=== PATIENT | female | born 1940 | race Caucasian/White ===

== ENCOUNTER → 2018-06-05 | Outpatient (CLI) | payer MEDICARE ==
[~2018-06-05] MED LIST: ATEN50TA PO; GABA-529 PO; HYDR12.530 PO; REGADENOSON 0.4 MG/5 ML PF SYG IVP SCH; ROPI4TAB6 PO
== END | disposition home or self-care (01) ==
LOC: SHCH 11:10
PROVIDERS: ATTEND Internal Medicine Cardiovascular Disease
DX: R94.31 Abnormal electrocardiogram [ECG] [EKG] (principal); R07.9 Chest pain, unspecified; R06.09 Other forms of dyspnea
CPT/HCPCS: 78452; 93017; 96374; A9500 ×2

== ENCOUNTER → 2018-06-14 | Outpatient (CLI) | payer MEDICARE ==
[~2018-06-14] MED LIST changes: -REGADENOSON 0.4 MG/5 ML PF SYG IVP SCH
== END | disposition home or self-care (01) ==
LOC: SHCH 15:00
PROVIDERS: ATTEND Internal Medicine Cardiovascular Disease
DX: R09.89 Other specified symptoms and signs involving the circulatory and respiratory systems (principal)
CPT/HCPCS: 93880

== ENCOUNTER 2018-06-27 05:51 | Day surgery (SDC) | payer MEDICARE ==
[2018-06-25 14:52] VITALS: BP 198/70
[2018-06-25 15:00] LABS: BASOPHILS % (AUTO) 0.9 % (0.0-5.0); EOSINOPHILS % (AUTO) 1.3 % (0.0-8.0); HEMATOCRIT 42.5 % (36-48); MEAN CORPUSCULAR HEMOGLOBIN 30.2 pg (27.0-33.0); MEAN CORPUSCULAR HGB CONC 33.4 g/dL (32.0-36.0); MEAN CORPUSCULAR VOLUME 90.4 fL (79-99); MONOCYTES % (AUTO) 8.8 % (3.0-13.0); PLATELET COUNT (AUTO) 303 K/uL (130-400); RED CELL DISTRIBUTION WIDTH 13.6 % (11.0-15.5); WHITE BLOOD COUNT (AUTO) 7.7 K/uL (4.8-10.8)
[2018-06-25 15:01] LABS: APPEARANCE,URINE Clear (CLEAR); BILIRUBIN,URINE Negative (NEGATIVE); COLOR,URINE Yellow (YELLOW); GLUCOSE, URINE (UA) Negative (NEGATIVE); KETONES,URINE Negative (NEGATIVE); LEUKOCYTE ESTERASE ,URINE Trace (NEGATIVE); NITRATE,URINE Negative (NEGATIVE); OCCULT BLOOD,URINE Negative (NEGATIVE); PROTEIN,URINE Negative (NEGATIVE); UROBILINOGEN,URINE 0.2 mg/dL (0.2-1.0)
[2018-06-25 15:09] LABS: CREATININE 0.7 mg/dL (0.5-1.5); POTASSIUM 4.4 mmol/L (3.5-5.1)
[2018-06-25 15:10] LABS: BACTERIA,URINE Few /HPF (None Seen); RBC,URINE None Seen /HPF (0-1)
[2018-06-25 15:11] LABS: INR 0.96 (0.85-1.15); PARTIAL THROMBOPLASTIN TIME 28.7 SEC (26.3-35.5); PROTHROMBIN TIME 10.1 SEC (9.6-11.6)
[~2018-06-27] VITALS: Ht 152.4 cm; Wt 77.1 kg
[2018-06-27] VITALS (10 sets, daily range): BP systolic 133–176; BP diastolic 53–111
[~2018-06-27 05:51] MED LIST changes: +ALEN70TA47 PO; +AMLO5TAB7 PO; -GABA-529 PO; -HYDR12.530 PO; +LEVO175T9 PO; +NITR0.4T50 SL; +SODIUM CHLORIDE 0.9% 500ML 500 ML IV SCH; +TRAZ-187 PO
[2018-06-27] MEDS ORDERED: ALPRAZOLAM 0.5 MG TABLET ONE (06:38)
[2018-06-27] MEDS ORDERED: BIVALIRUDIN 250 MG/VIAL IV ONE (07:12)
[2018-06-27] MEDS ORDERED: IOHEXOL 350 MG/ML 100ML INFUS..BTL IV ONE (07:12)
[2018-06-27] MEDS ORDERED: IOHEXOL-350 50ML VIAL IV ONE (07:12)
[2018-06-27] MEDS ORDERED: NITROGLYCERIN 5 MG/ML 10 ML VIAL IV ONE (07:12)
[2018-06-27] MEDS ORDERED: LIDOCAINE HCL 2% 20ML ONE (07:12)
[2018-06-27] MEDS ORDERED: SODIUM CHLORIDE 0.9% 1000ML 1,000 ML IV ONE (07:14)
[2018-06-27] MEDS ORDERED: ALPRAZOLAM 0.5 MG TABLET PO SCH (07:30)
[2018-06-27] MEDS ORDERED: MIDAZOLAM HCL 1 MG/ML 2ML VIAL ONE (07:34)
[2018-06-27] MEDS ORDERED: FENTANYL CITRATE PF 50 MCG/1 ML 2ML VIAL ONE (07:35)
[2018-06-27] MEDS ORDERED: LABETALOL HCL 5 MG/ML 20ML VIAL IV ONE (08:08)
[2018-06-27] MEDS ORDERED: SODIUM CHLORIDE 0.9% 1000ML 1,000 ML IV SCH (08:13)
[2018-06-27] MEDS ORDERED: METOPROLOL TARTRATE 1 MG/ML 5ML VIAL IV PRN (08:15)
[2018-06-27] MEDS ORDERED: DEXTROSE 50%-WATER 50 ML DISP.SYRIN IV PRN (08:15)
[2018-06-27] MEDS ORDERED: HYDRALAZINE HCL 20 MG/ML VIAL IV PRN (08:15)
[2018-06-27] MEDS ORDERED: GLUCAGON 1MG KIT 1 MG ML IM PRN (08:15)
== END 2018-06-27 12:40 | disposition home or self-care (01) ==
LOC: DAH 05:51
PROVIDERS: ATTEND Internal Medicine Cardiovascular Disease
DX: I25.118 Atherosclerotic heart disease of native coronary artery with other forms of angina pectoris (principal); I11.0 Hypertensive heart disease with heart failure; I50.32 Chronic diastolic (congestive) heart failure; Z68.32 Body mass index [BMI] 32.0-32.9, adult; Z79.899 Other long term (current) drug therapy; E78.00 Pure hypercholesterolemia, unspecified; M19.90 Unspecified osteoarthritis, unspecified site; G89.4 Chronic pain syndrome; E03.9 Hypothyroidism, unspecified; E66.01 Morbid (severe) obesity due to excess calories; G25.81 Restless legs syndrome; Z98.890 Other specified postprocedural states; I73.9 Peripheral vascular disease, unspecified; R55 Syncope and collapse; Z88.8 Allergy status to other drugs, medicaments and biological substances; Z88.0 Allergy status to penicillin
CPT/HCPCS: 36415; 80048; 81001; 81003; 85025; 85610; 85730; 93458; A4606; C1894 ×2; J0360; J1644; J2250; J3010; J3490 ×3; J7030; Q9965; Q9967 ×2; 99156; 99157; J0583

== ENCOUNTER 2018-11-01 14:03 | Emergency (ER) | payer MEDICARE ==
[~2018-11-01 14:03] MED LIST changes: +ALEN70TA10 PO; -ALEN70TA47 PO; -AMLO5TAB7 PO; +AMLO5TAB9 PO; -SODIUM CHLORIDE 0.9% 500ML 500 ML IV SCH
[2018-11-01 14:57] LABS: BASOPHILS % (AUTO) 0.5 % (0.0-5.0); HEMATOCRIT 47.6 % (36-48); LYMPHOCYTES % (AUTO) 7.4 % (21.0-51.0); MEAN CORPUSCULAR HEMOGLOBIN 29.2 pg (27.0-33.0); MEAN CORPUSCULAR HGB CONC 33.3 g/dL (32.0-36.0); MEAN CORPUSCULAR VOLUME 87.7 fL (79-99); MONOCYTES % (AUTO) 7.5 % (3.0-13.0); NEUTROPHILS % (AUTO) 83.6 % (40.0-77.0); PLATELET COUNT (AUTO) 283 K/uL (130-400); RED BLOOD CELL COUNT(AUTO) 5.43 MIL/uL (4.00-5.50); RED CELL DISTRIBUTION WIDTH 14.9 % (11.0-15.5); WHITE BLOOD COUNT (AUTO) 8.5 K/uL (4.8-10.8)
[2018-11-01 15:09] LABS: CREATININE 0.7 mg/dL (0.5-1.5); POTASSIUM 4.1 mmol/L (3.5-5.1)
[2018-11-01 15:13] LABS: INR 0.97 (0.85-1.15); PARTIAL THROMBOPLASTIN TIME 30.3 SEC (26.3-35.5); PROTHROMBIN TIME 10.2 SEC (9.6-11.6)
[2018-11-01 15:14] LABS: ALBUMIN 3.5 g/dL (3.5-5.0); BILIRUBIN,TOTAL 0.2 mg/dL (0.2-1.0); TOTAL PROTEIN, SERUM 7.9 g/dL (6.0-8.3)
[2018-11-01] MEDS ORDERED: METHYLPREDNISOLONE SOD SUCC 125MG/2ML VIAL ONE (15:20)
[2018-11-01] MEDS ORDERED: VALACYCLOVIR HCL 500 MG TABLET PO SCH (15:45)
== END 2018-11-01 17:07 | disposition home or self-care (01) ==
LOC: EDH 14:03
DX: B02.9 Zoster without complications (principal); M54.5 Low back pain; M25.561 Pain in right knee; I25.10 Atherosclerotic heart disease of native coronary artery without angina pectoris; I10 Essential (primary) hypertension; E07.9 Disorder of thyroid, unspecified; Z90.49 Acquired absence of other specified parts of digestive tract; Z88.0 Allergy status to penicillin; Z88.6 Allergy status to analgesic agent; W18.39XA Other fall on same level, initial encounter; Y93.89 Activity, other specified; Y92.89 Other specified places as the place of occurrence of the external cause; Y99.8 Other external cause status
CPT/HCPCS: 36415; 72131; 73562; 80053; 82150; 82550; 83690; 85025; 85610; 85730; 93005; 96372; 99284; J2930

== ENCOUNTER 2018-11-21 19:49 | Inpatient (IN) | payer MEDICARE ==
[~2018-11-21] VITALS: Ht 152.4 cm; Wt 75.7 kg
[2018-11-21 20:52] LABS: BASOPHILS % (AUTO) 1.1 % (0.0-5.0); EOSINOPHILS % (AUTO) 3.3 % (0.0-8.0); HEMATOCRIT 42.7 % (36-48); LYMPHOCYTES % (AUTO) 18.8 % (21.0-51.0); MEAN CORPUSCULAR HGB CONC 34.4 g/dL (32.0-36.0); MEAN CORPUSCULAR VOLUME 87.4 fL (79-99); MONOCYTES % (AUTO) 9.5 % (3.0-13.0); NEUTROPHILS % (AUTO) 67.3 % (40.0-77.0); NUCLEATED RED BLOOD CELLS 0.1 % (0.0-0.19); PLATELET COUNT (AUTO) 199 K/uL (130-400); RED BLOOD CELL COUNT(AUTO) 4.89 MIL/uL (4.00-5.50); RED CELL DISTRIBUTION WIDTH 15.4 % (11.0-15.5); WHITE BLOOD COUNT (AUTO) 9.8 K/uL (4.8-10.8)
[2018-11-21 21:00] LABS: CREATININE 0.7 mg/dL (0.5-1.5)
[2018-11-21] MEDS ORDERED: MORPHINE SULFATE 2 MG/ML 1ML SYG ONE (21:00)
[2018-11-21] MEDS ORDERED: ONDANSETRON HCL 4 MG/2 ML VIAL ONE (21:00)
[2018-11-21 21:01] LABS: INR 0.9 (0.85-1.15); PARTIAL THROMBOPLASTIN TIME 29.4 SEC (26.3-35.5); PROTHROMBIN TIME 9.5 SEC (9.6-11.6)
[2018-11-21 21:07] LABS: BILIRUBIN,TOTAL 0.3 mg/dL (0.2-1.0)
[2018-11-21 21:57] LABS: APPEARANCE,URINE Clear (CLEAR); BILIRUBIN,URINE Negative (NEGATIVE); COLOR,URINE Yellow (YELLOW); GLUCOSE, URINE (UA) Negative (NEGATIVE); KETONES,URINE 15 mg/dL (NEGATIVE); LEUKOCYTE ESTERASE ,URINE Large (NEGATIVE); NITRATE,URINE Negative (NEGATIVE); OCCULT BLOOD,URINE Nonhemolyzed Trace (NEGATIVE); PROTEIN,URINE Negative (NEGATIVE); UROBILINOGEN,URINE 0.2 mg/dL (0.2-1.0)
[2018-11-21 22:06] LABS: BACTERIA,URINE Few /HPF (None Seen); SQUAMOUS EPITHELIAL CELL,UR Few /HPF (0-2); TRANSITIONAL EPI CELLS,URINE Rare /HPF (None Seen)
[2018-11-21] MEDS ORDERED: FENTANYL CITRATE PF 50 MCG/1 ML 2ML VIAL ONE (22:08)
[2018-11-21] MEDS ORDERED: CEFTRIAXONE SODIUM 1 GM ONE (23:32)
[2018-11-21] MEDS: SODIUM CHLORIDE 0.9% 1000ML 1,000 ML IV SCH (23:33)
[2018-11-21] MEDS ORDERED: MORPHINE SULFATE 2 MG/ML 1ML SYG IVP PRN (23:45)
[2018-11-21] MEDS: CEFTRIAXONE SODIUM 1 GM IV SCH (23:45)
[2018-11-21] MEDS ORDERED: ONDANSETRON HCL 4 MG/2 ML VIAL IV PRN (23:45)
[2018-11-21] MEDS ORDERED: ACETAMINOPHEN 325 MG TAB PO PRN ×2 (23:45)
[2018-11-22 01:25] VITALS: BP 129/59
[2018-11-22 03:00] VITALS: BP 129/59
[2018-11-22] MEDS ORDERED: MORPHINE SULFATE 4 MG/1ML SYG ONE (04:49)
[2018-11-22 07:55] VITALS: BP 141/70
[2018-11-22] MEDS: DEXAMETHASONE SOD PHOSPHATE 4 MG/ML 1ML VIAL IVP SCH ×3 (08:42→20:45)
[2018-11-22] MEDS: FAMOTIDINE/PF 20 MG/2 ML VIAL IV SCH ×2 (08:42→20:45)
[2018-11-22] MEDS: POLYETHYLENE GLYCOL 3350 17 GM POWD.PACK PO SCH (08:43)
[2018-11-22] MEDS: ENOXAPARIN SODIUM 30 MG/0.3 ML SQ SCH ×2 (08:43→20:52)
[2018-11-22] MEDS: BACLOFEN 10 MG TABLET PO SCH ×3 (08:43→20:45)
[2018-11-22] MEDS: PREGABALIN 75 MG CAPSULE PO SCH ×3 (08:43→20:48)
[2018-11-22] MEDS: LIDOCAINE 5% TOPICAL PATCH TP SCH (08:45)
[2018-11-22] MEDS: MORPHINE SULFATE 4 MG/1ML SYG IVP PRN ×3 (08:46→18:45)
[2018-11-22 11:00] VITALS: BP 149/82
[2018-11-22] MEDS: SODIUM CHLORIDE 0.9% 1000ML 1,000 ML IV SCH (13:53)
--- NOTE | 2018-11-22 15:00 | NUR ---
ORTHO CONSULT CALLED DR. FRANCOIS FOR ORTHO CONSULT DR. COBIAN PLACED. DR FRANCOIS SAID HE WOULD COME THIS EVENING OR IN THE MORNING TO SEE THE PATIENT. NO NEW ORDERS RECEIVED.
[2018-11-22 16:00] VITALS: BP 130/74
--- NOTE | 2018-11-22 16:40 | NUR ---
DCP CM met with pt discussed dc plans. Pt is independent prior to admission, lives at home alone, daughter lives close by. Pt states she has 2 canes, walker, bedside commode. Denies any other equipments/services. Pt feels safe to go back home, agreeable to short term placement rehab if MD recommends, JAYDA signed for [facility], pending MD order and recommendations at this time, primary nurse made aware. DC plan to home vs SNF. CM to cont to follow up. Addendum: 11/22/18 at 1643 by TRUMAN ELENA LVN CM Amended: Links added.
[2018-11-22 20:00] VITALS: BP 153/80
[2018-11-22] MEDS ORDERED: NITROGLYCERIN 0.4 MG SL TAB SL SCH (22:15)
[2018-11-23] VITALS (7 sets, daily range): BP systolic 115–173; BP diastolic 69–98
[2018-11-23] MEDS: CEFTRIAXONE SODIUM 1 GM IV SCH ×2 (00:33→23:31)
[2018-11-23] MEDS: SODIUM CHLORIDE 0.9% 1000ML 1,000 ML IV SCH ×2 (00:37→14:20)
[2018-11-23] MEDS: MORPHINE SULFATE 4 MG/1ML SYG IVP PRN (00:42)
[2018-11-23] MEDS: FAMOTIDINE/PF 20 MG/2 ML VIAL IV SCH ×2 (08:25→20:40)
[2018-11-23] MEDS: LEVOTHYROXINE 75 MCG TABLET PO SCH (08:25)
[2018-11-23] MEDS: DEXAMETHASONE SOD PHOSPHATE 4 MG/ML 1ML VIAL IVP SCH ×3 (08:26→20:40)
[2018-11-23] MEDS: PREGABALIN 75 MG CAPSULE PO SCH ×3 (08:26→20:40)
[2018-11-23] MEDS: ATENOLOL 50 MG TABLET PO SCH (08:26)
[2018-11-23] MEDS: POLYETHYLENE GLYCOL 3350 17 GM POWD.PACK PO SCH (08:27)
[2018-11-23] MEDS: LIDOCAINE 5% TOPICAL PATCH TP SCH (08:28)
[2018-11-23] MEDS: BACLOFEN 10 MG TABLET PO SCH ×3 (08:31→20:40)
[2018-11-23] MEDS: ENOXAPARIN SODIUM 30 MG/0.3 ML SQ SCH ×2 (08:43→20:47)
--- NOTE | 2018-11-23 11:45 | NUR ---
CM Note: [facility] pending acceptance CM spoke to Sadie w/[facility], came to eval pt. Aware need to complete 3rd MN tonight prior to transfer. Pt pending acceptance at this time. EMS arranged and faxed for tomorrow. Primary nurse aware. CM to cont to follow up.
[2018-11-23] MEDS: AMLODIPINE BESYLATE 5 MG TAB PO SCH ×2 (14:20→14:35)
--- NOTE | 2018-11-23 14:30 | NUR ---
DR. COBIAN IN THE ROOM FOR DAILY ROUNDS WIT PT. NOTIFIED MD OF PT'S REFUSAL OF LOVENOX, AMLODIPINE, AND OTHERS. MD ASSESSED PT; EMPHASIZED IMPORTANCE OF TAKING BP MEDS AND BLOOD THINNERS ORDERED. PT FINALLY AGREED AND TOOK CURRENTLY DUE AMLODIPINE. SHE TOLD MD SHE WOULD BE UP AND WALKING TOMORROW AND THUS WOULD NOT NEED TO HAVE LOVENOX; COMPRESSION STOCKINGS PLACED ON PT.
[2018-11-23] MEDS: LUBIPROSTONE 24 MCG CAP PO SCH ×2 (14:45→16:19)
[2018-11-23] MEDS: TRAZODONE HCL 100 MG TABLET PO SCH (20:40)
[2018-11-23] MEDS: ROPINIROLE HCL 1 MG TABLET PO SCH (20:40)
[2018-11-24] VITALS (7 sets, daily range): BP systolic 137–174; BP diastolic 51–71
[2018-11-24 04:03] LABS: HEMATOCRIT 40.7 % (36-48); MEAN CORPUSCULAR HEMOGLOBIN 29.2 pg (27.0-33.0); MEAN CORPUSCULAR HGB CONC 33.2 g/dL (32.0-36.0); MEAN CORPUSCULAR VOLUME 87.8 fL (79-99); PLATELET COUNT (AUTO) 241 K/uL (130-400); RED BLOOD CELL COUNT(AUTO) 4.64 MIL/uL (4.00-5.50); RED CELL DISTRIBUTION WIDTH 15.2 % (11.0-15.5); WHITE BLOOD COUNT (AUTO) 10.3 K/uL (4.8-10.8)
[2018-11-24 04:15] LABS: CREATININE 0.5 mg/dL (0.5-1.5); MAGNESIUM 2.1 mg/dL (1.80-2.40); PHOSPHORUS 2.4 mg/dL (2.5-4.9)
[2018-11-24] MEDS: LEVOTHYROXINE 75 MCG TABLET PO SCH (06:34)
[2018-11-24] MEDS: LEVOTHYROXINE 100 MCG TABLET PO SCH (06:34)
[2018-11-24] MEDS: LUBIPROSTONE 24 MCG CAP PO SCH ×2 (08:00→16:26)
--- NOTE | 2018-11-24 08:23 | NUR ---
Notified Josue Londono NP of pt's pulse of 50. Rec'd instruction not to administer currently scheduled atenolol.
[2018-11-24] MEDS: ENOXAPARIN SODIUM 30 MG/0.3 ML SQ SCH ×2 (09:00→20:38)
[2018-11-24] MEDS: ATENOLOL 50 MG TABLET PO SCH (09:00)
[2018-11-24] MEDS ORDERED: HYDRALAZINE HCL 20 MG/ML VIAL IV PRN (09:00)
[2018-11-24] MEDS: POLYETHYLENE GLYCOL 3350 17 GM POWD.PACK PO SCH (09:00)
[2018-11-24] MEDS: FAMOTIDINE/PF 20 MG/2 ML VIAL IV SCH ×2 (09:18→20:38)
[2018-11-24] MEDS: PREGABALIN 75 MG CAPSULE PO SCH ×3 (09:18→20:38)
[2018-11-24] MEDS: BACLOFEN 10 MG TABLET PO SCH ×3 (09:18→20:38)
[2018-11-24] MEDS: LIDOCAINE 5% TOPICAL PATCH TP SCH (09:19)
[2018-11-24] MEDS: MORPHINE SULFATE 4 MG/1ML SYG IVP PRN (12:07)
--- NOTE | 2018-11-24 14:20 | NUR ---
cm note pt accepted at [facility] as per siddhartha rep at [facility]. updated nabil primary nurse.
[2018-11-24] MEDS: AMLODIPINE BESYLATE 5 MG TAB PO SCH (14:51)
[2018-11-24] MEDS: ROPINIROLE HCL 1 MG TABLET PO SCH (20:38)
[2018-11-24] MEDS: TRAZODONE HCL 100 MG TABLET PO SCH (20:38)
[2018-11-24] MEDS: CEFTRIAXONE SODIUM 1 GM IV SCH (23:31)
[2018-11-25 03:12] VITALS: BP 146/54
[2018-11-25] MEDS: MORPHINE SULFATE 4 MG/1ML SYG IVP PRN (04:50)
[2018-11-25 04:58] LABS: MEAN CORPUSCULAR HEMOGLOBIN 29.8 pg (27.0-33.0); MEAN CORPUSCULAR HGB CONC 33.8 g/dL (32.0-36.0); MEAN CORPUSCULAR VOLUME 88.1 fL (79-99); NUCLEATED RED BLOOD CELLS 0.1 % (0.0-0.19); PLATELET COUNT (AUTO) 204 K/uL (130-400); RED BLOOD CELL COUNT(AUTO) 4.66 MIL/uL (4.00-5.50); RED CELL DISTRIBUTION WIDTH 15.3 % (11.0-15.5); WHITE BLOOD COUNT (AUTO) 7.5 K/uL (4.8-10.8)
[2018-11-25 04:59] LABS: CREATININE 0.7 mg/dL (0.5-1.5)
[2018-11-25] MEDS: LEVOTHYROXINE 75 MCG TABLET PO SCH (06:40)
[2018-11-25] MEDS: LEVOTHYROXINE 100 MCG TABLET PO SCH (06:41)
[2018-11-25] MEDS: LUBIPROSTONE 24 MCG CAP PO SCH ×2 (08:00→17:00)
[2018-11-25 08:03] VITALS: BP 173/71
[2018-11-25] MEDS: LIDOCAINE 5% TOPICAL PATCH TP SCH (08:26)
[2018-11-25] MEDS: PREGABALIN 75 MG CAPSULE PO SCH ×2 (08:27→14:41)
[2018-11-25] MEDS: POLYETHYLENE GLYCOL 3350 17 GM POWD.PACK PO SCH (08:27)
[2018-11-25] MEDS: FAMOTIDINE/PF 20 MG/2 ML VIAL IV SCH (08:27)
[2018-11-25] MEDS: BACLOFEN 10 MG TABLET PO SCH ×2 (08:27→14:41)
[2018-11-25] MEDS: ENOXAPARIN SODIUM 30 MG/0.3 ML SQ SCH (08:28)
[2018-11-25 08:57] VITALS: BP 145/67
[2018-11-25] MEDS: ATENOLOL 50 MG TABLET PO SCH (09:00)
--- NOTE | 2018-11-25 10:04 | NUR ---
URINE CULTURE RESULTED WITH DIPHTHEROIDS IN URINE. NO FURTHER STUDIES DONE. SPOKE WITH MAURICIO FROM LAB, WHO STATED THAT IT IS CONSIDERED A CONTAMINATE AND PER PROTOCOL, NO SUSCEPTIBILITIES ARE PERFORMED ON THIS ORGANISM. NOTIFIED CALL MANAGER CORONA ARRIAGA.
[2018-11-25 11:15] VITALS: BP 142/61
[2018-11-25] MEDS ORDERED: CEFD300C3 PO (11:44)
[2018-11-25] MEDS: AMLODIPINE BESYLATE 5 MG TAB PO SCH (14:41)
--- NOTE | 2018-11-25 16:36 | NUR ---
Attempted to call report to [facility] nurse Devan Nugent LVN, who stated the a triplicate would be needed for pt's lyrica, or alternate pain medication would have to be ordered. Informed FAN BLADE TRUER Josue Londono of this, but she is unable to provide triplicate and she refused to call in rx for tylenol 3, she stated "Just stop the lyrica, send the pt with regular tylenol, then the doctors over there can give her something." Informed [facility] nurse, he stated he could not accept the patient without adequate pain control given that the pt is admitted with pelvic fx and intractable pain. Stated he would notify his director and Dr. Culp (pt's accepting MD) and will attempt to get rx in place, then would call back. Notified Tie Binder Kain and Charge nurse Tahira.
--- NOTE | 2018-11-25 18:30 | NUR ---
Completed report to [facility] Nurse Hartman, [facility] medical dosimetrist to order narcotic pain relief for pt while she is at their facility. Discharge teaching completed in the room with pt. Emphasis on dx, s/s to monitor for, when to seek emergency care vs dial 911. Pt is to follow up with PCP in 3 days. Emphasis on importance of pt using wheeled walker instead of bilateral canes per dr arnold's recommendation. PIV removed, tip intact, dressed with sterile 2x2 and band aid after hemostasis. Pt wheeled out via EMS stretcher for transfer to [facility] via EMS. Pt in stable condition at time of discharge. Pt's daughter Melly was notified of pending transfer during her visit at lunch time today.
== END 2018-11-25 18:37 | DRG 552 ==
LOC: EDH 19:49 → EDHIP 23:20 → 4BH 11-22 00:20
PROVIDERS: ADMIT Internal Medicine; ATTEND Internal Medicine
DX: M47.26 Other spondylosis with radiculopathy, lumbar region (principal); S32.9XXA Fracture of unspecified parts of lumbosacral spine and pelvis, initial encounter for closed fracture; N39.0 Urinary tract infection, site not specified; E44.0 Moderate protein-calorie malnutrition; S32.592A Other specified fracture of left pubis, initial encounter for closed fracture; I10 Essential (primary) hypertension; E03.9 Hypothyroidism, unspecified; I70.0 Atherosclerosis of aorta; K59.03 Drug induced constipation; T40.2X5A Adverse effect of other opioids, initial encounter; W19.XXXA Unspecified fall, initial encounter; K43.9 Ventral hernia without obstruction or gangrene; N83.201 Unspecified ovarian cyst, right side; R29.6 Repeated falls; Z82.49 Family history of ischemic heart disease and other diseases of the circulatory system; W01.0XXA Fall on same level from slipping, tripping and stumbling without subsequent striking against object, initial encounter; Y93.89 Activity, other specified; Y92.090 Kitchen in other non-institutional residence as the place of occurrence of the external cause; Y99.8 Other external cause status; Z88.6 Allergy status to analgesic agent; Z88.0 Allergy status to penicillin; Z68.32 Body mass index [BMI] 32.0-32.9, adult
CPT/HCPCS: 36415; 70450; 72131; 72192; 80048; 80053; 81001; 82550; 83605; 83735; 84100; 84484; 85025; 85027; 85610; 85730; 87088; 97039; A4218; G0378; J0360; J0696; J1100; J1650; J2270; J2405; J3010; J3490; J7030

== ENCOUNTER 2019-05-03 22:50 | Inpatient (IN) | payer MEDICARE ==
[~2019-05-03] VITALS: Ht 152.4 cm; Wt 79.0 kg
[~2019-05-03 22:50] MED LIST changes: +CEFD300C3 PO
[2019-05-03] MEDS ORDERED: ONDANSETRON HCL 4 MG/2 ML VIAL ONE (23:31)
[2019-05-03] MEDS ORDERED: MORPHINE SULFATE 2 MG/ML 1ML SYG ONE (23:31)
[2019-05-03 23:33] LABS: BASOPHILS % (AUTO) 0.6 % (0.0-5.0); EOSINOPHILS % (AUTO) 1.9 % (0.0-8.0); HEMATOCRIT 39.9 % (36-48); LYMPHOCYTES % (AUTO) 24.7 % (21.0-51.0); MEAN CORPUSCULAR HEMOGLOBIN 29.5 pg (27.0-33.0); MEAN CORPUSCULAR HGB CONC 34.1 g/dL (32.0-36.0); MEAN CORPUSCULAR VOLUME 86.5 fL (79-99); MONOCYTES % (AUTO) 11.2 % (3.0-13.0); NEUTROPHILS % (AUTO) 61.6 % (40.0-77.0); PLATELET COUNT (AUTO) 251 K/uL (130-400); RED BLOOD CELL COUNT(AUTO) 4.61 MIL/uL (4.00-5.50); RED CELL DISTRIBUTION WIDTH 13.6 % (11.0-15.5); WHITE BLOOD COUNT (AUTO) 8.9 K/uL (4.8-10.8)
[2019-05-03 23:40] LABS: CREATININE 0.6 mg/dL (0.5-1.5); POTASSIUM 3.4 mmol/L (3.5-5.1)
[2019-05-03 23:45] LABS: INR 0.94 (0.85-1.15); PARTIAL THROMBOPLASTIN TIME 25.1 SEC (26.3-35.5); PROTHROMBIN TIME 9.9 SEC (9.6-11.6)
[2019-05-03] MEDS ORDERED: LIDOCAINE HCL 1% 20 ML VIAL ONE (23:47)
[2019-05-03] MEDS ORDERED: BUPIVACAINE/PF 0.5% 30ML VIAL ONE ×2 (23:47→23:50)
[2019-05-04 00:08] LABS: APPEARANCE,URINE Clear (CLEAR); BILIRUBIN,URINE Negative (NEGATIVE); COLOR,URINE Yellow (YELLOW); GLUCOSE, URINE (UA) Negative (NEGATIVE); KETONES,URINE Negative (NEGATIVE); LEUKOCYTE ESTERASE ,URINE Negative (NEGATIVE); NITRATE,URINE Negative (NEGATIVE); OCCULT BLOOD,URINE Negative (NEGATIVE); PROTEIN,URINE Negative (NEGATIVE); UROBILINOGEN,URINE 0.2 mg/dL (0.2-1.0)
[2019-05-04] MEDS: SODIUM CHLORIDE 0.9% 1000ML 1,000 ML IV SCH ×2 (00:34→20:09)
[2019-05-04] MEDS ORDERED: LACTULOSE 20 GM/30 ML UDCUP PO PRN (00:45)
[2019-05-04] MEDS ORDERED: HYDRALAZINE HCL 20 MG/ML VIAL IV PRN (00:45)
[2019-05-04] MEDS ORDERED: ACETAMINOPHEN 325 MG TAB PO PRN ×2 (00:45)
[2019-05-04] MEDS ORDERED: ONDANSETRON HCL 4 MG/2 ML VIAL IV PRN (00:45)
[2019-05-04 02:30] VITALS: BP 169/67
[2019-05-04 07:52] VITALS: BP 160/66
[2019-05-04] MEDS: FAMOTIDINE/PF 20 MG/2 ML VIAL IV SCH ×2 (08:44→20:07)
[2019-05-04] MEDS: MORPHINE SULFATE 4 MG/1ML SYG IV PRN ×3 (08:52→20:08)
[2019-05-04] MEDS ORDERED: LIDOCAINE HCL-MPF 1% 2ML VIAL IV PRN (09:45)
[2019-05-04] MEDS ORDERED: POTASSIUM CHLORIDE 20MEQ/100ML 100 ML IV PRN (09:45)
[2019-05-04] MEDS: LEVOTHYROXINE 100 MCG TABLET PO SCH (10:02)
[2019-05-04] MEDS: LEVOTHYROXINE 75 MCG TABLET PO SCH (10:04)
[2019-05-04 11:38] VITALS: BP 150/74
--- NOTE | 2019-05-04 12:45 | NUR ---
Nutrition intervention: Nutrition notification for Having Surgery. Pt with Right Intertrochanteric Fracture. Pt currently NPO. Will continue to monitor diet advancement. recommendations: when medically feasible, advance diet therapy to Heart Healthy as tolerated. Addendum: 05/04/19 at [address] Amended: Links added.
[2019-05-04] MEDS: ENOXAPARIN SODIUM 40 MG/0.4 ML SYRINGE SQ SCH (13:09)
[2019-05-04] MEDS ORDERED: ROPINIROLE HCL 1 MG TABLET ONE (14:34)
[2019-05-04] MEDS ORDERED: ROPINIROLE HCL 1 MG TABLET PO PRN (14:45)
[2019-05-04] MEDS ORDERED: AMLODIPINE BESYLATE 5 MG TAB PO SCH (15:00)
[2019-05-04 16:00] VITALS: BP 155/67
--- NOTE | 2019-05-04 18:45 | NUR ---
cm note met with patient and states resides at home alone. uses cane and walker mostly at home. does have a w/c. also. no hh or sitter services. normally does own personal care. states her daughter Melly is here from [place] to help her for a while. discussed with pt options for rehab postop. has been at [facility] and [facility], but she did not really care for them. will go to a snf if md really thinks she needs it, but prefers home. will followup postop. for dc needs. Addendum: 05/04/19 at 1849 by MATTHEW ROCHA CM Amended: Links added.
[2019-05-04 19:30] VITALS: BP 153/64
[2019-05-04] MEDS: ROPINIROLE HCL 1 MG TABLET PO SCH (20:07)
[2019-05-04] MEDS: TRAZODONE HCL 100 MG TABLET PO SCH (20:08)
[2019-05-05] VITALS (25 sets, daily range): BP systolic 131–183; BP diastolic 56–94
[2019-05-05 04:27] LABS: HEMATOCRIT 38.9 % (36-48); MEAN CORPUSCULAR HEMOGLOBIN 29.8 pg (27.0-33.0); MEAN CORPUSCULAR HGB CONC 33.9 g/dL (32.0-36.0); PLATELET COUNT (AUTO) 211 K/uL (130-400); RED BLOOD CELL COUNT(AUTO) 4.43 MIL/uL (4.00-5.50); RED CELL DISTRIBUTION WIDTH 13.8 % (11.0-15.5); WHITE BLOOD COUNT (AUTO) 10.5 K/uL (4.8-10.8)
[2019-05-05 04:30] LABS: CREATININE 0.5 mg/dL (0.5-1.5); POTASSIUM 3.9 mmol/L (3.5-5.1)
[2019-05-05 04:36] LABS: BASOPHILS % (MANUAL) 1 % (0-2); EOSINOPHILS % (MANUAL) 3 % (1-6); LYMPHOCYTES % (MANUAL) 13 % (22-44); MAN.DIFF COMMENT-IMPRESSION MANUAL DIFFERENTIAL; MONOCYTES % (MANUAL) 10 % (2-9); PLATELET MORPHOLOGY COMMENT ADEQUATE; SEGMENTED NEUTROPHILS % 73 % (40-70)
[2019-05-05] MEDS: LEVOTHYROXINE 100 MCG TABLET PO SCH (05:33)
[2019-05-05] MEDS: LEVOTHYROXINE 75 MCG TABLET PO SCH (05:33)
[2019-05-05] MEDS: SODIUM CHLORIDE 0.9% 1000ML 1,000 ML IV SCH ×3 (05:33→16:34)
[2019-05-05] MEDS: MORPHINE SULFATE 4 MG/1ML SYG IV PRN ×3 (06:11→20:26)
[2019-05-05] MEDS ORDERED: ALENDRONATE SODIUM 35 MG TAB PO SCH (06:30)
[2019-05-05] MEDS: ENOXAPARIN SODIUM 40 MG/0.4 ML SYRINGE SQ SCH (09:00)
--- NOTE | 2019-05-05 09:00 | NUR ---
LOVENOX HELD LOVENOX HELD DUE TO PENDING SURGERY WITH
[2019-05-05] MEDS: FAMOTIDINE/PF 20 MG/2 ML VIAL IV SCH ×2 (09:26→20:19)
[2019-05-05] MEDS: ATENOLOL 50 MG TABLET PO SCH (09:27)
[2019-05-05] MEDS ORDERED: ROCURONIUM 10MG/1ML SYR 10 MG/ML ML ONE (12:24)
[2019-05-05] MEDS ORDERED: PROPOFOL 10 MG/ML 20ML VIAL IV ONE (12:24)
[2019-05-05] MEDS ORDERED: LIDOCAINE PF 2% 5ML ABBOJECT ONE (12:24)
[2019-05-05] MEDS ORDERED: ROPIVACAINE 0.5% 5MG/ML 30ML IJ ONE ×2 (12:24→12:27)
[2019-05-05] MEDS ORDERED: CLINDAMYCIN 600 MG/D5% WATER 50 ML IV ONE (12:27)
[2019-05-05] MEDS: CLINDAMYCIN 600 MG/D5% WATER 50 ML IV SCH ×3 (12:40→23:22)
[2019-05-05] MEDS ORDERED: NEOSTIGMINE 5MG/5ML SYR IV ONE (13:04)
[2019-05-05] MEDS ORDERED: GLYCOPYRROLATE 1 MG/5 ML SYRINGE ONE (13:04)
[2019-05-05] MEDS ORDERED: FENTANYL CITRATE PF 50 MCG/1 ML 2ML VIAL ONE (13:34)
[2019-05-05] MEDS: AMLODIPINE BESYLATE 5 MG TAB PO SCH (16:55)
[2019-05-05] MEDS: TRAZODONE HCL 100 MG TABLET PO SCH (20:19)
[2019-05-05] MEDS: ROPINIROLE HCL 1 MG TABLET PO SCH (20:19)
[2019-05-06] VITALS (7 sets, daily range): BP systolic 128–153; BP diastolic 57–68
[2019-05-06] MEDS: SODIUM CHLORIDE 0.9% 1000ML 1,000 ML IV SCH ×3 (01:52→22:34)
[2019-05-06] MEDS: MORPHINE SULFATE 4 MG/1ML SYG IV PRN ×4 (03:52→21:23)
[2019-05-06] MEDS: LEVOTHYROXINE 75 MCG TABLET PO SCH (06:34)
[2019-05-06] MEDS: LEVOTHYROXINE 100 MCG TABLET PO SCH (06:34)
[2019-05-06] MEDS: FAMOTIDINE/PF 20 MG/2 ML VIAL IV SCH ×2 (08:51→20:52)
[2019-05-06] MEDS: ENOXAPARIN SODIUM 40 MG/0.4 ML SYRINGE SQ SCH (09:02)
[2019-05-06] MEDS: ATENOLOL 50 MG TABLET PO SCH (10:04)
[2019-05-06] MEDS: TRAMADOL HCL 50 MG TABLET PO SCH (10:06)
--- NOTE | 2019-05-06 10:59 | NUR ---
REFUSED CT HEAD/BRAIN PATIENT REFUSED CT OF HEAD/BRAIN ORDERED BY DR. MATA. PATIENT STATES "I APPRECIATED DR. MATA COMING TO SEE ME, BUT I WOULD PREFER TO DEAL WITH THE EAR ISSUE ANOTHER TIME WITH DR. SANTOS. I WOULD PREFER TO DEAL WITH ONE THING AT A TIME PLEASE." Addendum: 05/06/19 at 1108 by GLEN DALTON RN RN I REPLIED TO PATIENT "SO, YOU DO NOT WANT CT SCAN OF BRAIN AND HEAD PERFORMED DURING THIS ADMISSION?" AND PATIENT REPLIED "NO." Addendum: 05/06/19 at 1927 by GLEN DALTON RN RN DR. MATA NOTIFIED PATIENT REFUSING CT HEAD/BRAIN STUDY
[2019-05-06] MEDS: ACETAMINOPHEN 325 MG TAB PO SCH ×3 (12:22→21:14)
--- NOTE | 2019-05-06 13:30 | NUR ---
PT NOTE: PATIENT PRESENTS WITH IMPROVED STATIC SITTING TOLERANCE AT EOB THIS PM VS AM TX SESSION. PATIENT WAS ABLE TO ASSIST WITH MOVING LE'S TO EOB REQUIRING MAX ASSIST X2 TO ASSUME SITTING POSITION AT EOB. PATIENT ATTEMPTED SIT-STAND TRANSFER WITH SW REQUIRING TOTAL ASSISTX2 BUT UNSUCCESSFUL SECONDARY TO C/O PAIN. PATIENT WILL BENEFIT FROM CONTINUED PT SERVICES TO DEVELOP STRENGTH SECONDARY TO INABILITY TO PERFORM FUNCTIONAL TRANSFERS WITHOUT X2 PERSON MAX ASSIST. Addendum: 05/06/19 at 1539 by AMIE GRACE PT Amended: Links added.
[2019-05-06] MEDS: AMLODIPINE BESYLATE 5 MG TAB PO SCH (15:00)
[2019-05-06] MEDS: TRAZODONE HCL 100 MG TABLET PO SCH (20:52)
[2019-05-06] MEDS: ROPINIROLE HCL 1 MG TABLET PO SCH (21:14)
[2019-05-06] MEDS: CIPROFLOXACIN HCL 0.2%/HYDROCORT 1% 10 ML OTIC SUSP OTIC SCH (21:14)
[2019-05-07 03:59] VITALS: BP 138/96
[2019-05-07 04:38] LABS: BASOPHILS % (AUTO) 0.4 % (0.0-5.0); HEMATOCRIT 31.5 % (36-48); LYMPHOCYTES % (AUTO) 10.7 % (21.0-51.0); MEAN CORPUSCULAR HEMOGLOBIN 29.9 pg (27.0-33.0); MEAN CORPUSCULAR HGB CONC 34.3 g/dL (32.0-36.0); MEAN CORPUSCULAR VOLUME 87.2 fL (79-99); MONOCYTES % (AUTO) 10.5 % (3.0-13.0); NEUTROPHILS % (AUTO) 75.4 % (40.0-77.0); PLATELET COUNT (AUTO) 191 K/uL (130-400); RED BLOOD CELL COUNT(AUTO) 3.61 MIL/uL (4.00-5.50); RED CELL DISTRIBUTION WIDTH 13.3 % (11.0-15.5); WHITE BLOOD COUNT (AUTO) 9.6 K/uL (4.8-10.8)
[2019-05-07 04:50] LABS: CREATININE 0.6 mg/dL (0.5-1.5); POTASSIUM 3.9 mmol/L (3.5-5.1)
[2019-05-07] MEDS: LEVOTHYROXINE 100 MCG TABLET PO SCH (05:19)
[2019-05-07] MEDS: LEVOTHYROXINE 75 MCG TABLET PO SCH (05:19)
[2019-05-07] MEDS: ACETAMINOPHEN 325 MG TAB PO SCH ×3 (05:20→21:25)
[2019-05-07 08:11] VITALS: BP 138/72
[2019-05-07] MEDS: MORPHINE SULFATE 4 MG/1ML SYG IV PRN (09:05)
[2019-05-07 11:40] VITALS: BP 135/55
[2019-05-07] MEDS: FAMOTIDINE/PF 20 MG/2 ML VIAL IV SCH ×2 (11:55→21:24)
[2019-05-07] MEDS: ENOXAPARIN SODIUM 40 MG/0.4 ML SYRINGE SQ SCH (11:56)
[2019-05-07] MEDS: ATENOLOL 50 MG TABLET PO SCH (11:58)
[2019-05-07] MEDS: TRAMADOL HCL 50 MG TABLET PO SCH (11:58)
[2019-05-07] MEDS: CIPROFLOXACIN HCL 0.2%/HYDROCORT 1% 10 ML OTIC SUSP OTIC SCH ×2 (11:59→21:32)
[2019-05-07] MEDS ORDERED: MORPHINE SULFATE 4 MG/1ML SYG IV PRN (12:45)
--- NOTE | 2019-05-07 13:30 | NUR ---
ACCEPTED AT [facility] RU W CONDITIONS SENT REFERRAL, ASSESSED BY BACILIO KENNY WORD BACK THAT PT IS ACCEPTED BUT NOT TODAY- BECAUSE ACCEPTANCE COMES WITH CONDTIONS. PT MUST BE OFF IV MORPHINE X 24 HRS AND HAVE PAIN ADEQUATELY CONTROLLED W PO MEDS. PATIENT MADE AWARE, PT STAFF MADE AWARE , AND KALIE CALZADA RN- AND HE WILL DISCUSS WITH PMD. MOT IN CHART, WILL COMPLETE IN AM Addendum: 05/08/19 at 0735 by SHADI GRACIA RN Amended: Links added.
[2019-05-07] MEDS ORDERED: BISACODYL 5 MG TABLET.DR PO PRN (14:15)
[2019-05-07] MEDS: HYDROCODONE/ACETAMINOPHEN 5/325 MG TAB PO PRN (16:43)
[2019-05-07] MEDS: AMLODIPINE BESYLATE 5 MG TAB PO SCH (16:43)
[2019-05-07 16:49] VITALS: BP 140/53
[2019-05-07 19:17] VITALS: BP 161/96
[2019-05-07] MEDS: ROPINIROLE HCL 1 MG TABLET PO SCH (21:23)
[2019-05-07] MEDS: TRAZODONE HCL 100 MG TABLET PO SCH (21:24)
[2019-05-07 23:41] VITALS: BP 131/59
[2019-05-08 03:15] VITALS: BP 178/83
[2019-05-08] MEDS: LEVOTHYROXINE 100 MCG TABLET PO SCH (04:45)
[2019-05-08] MEDS: LEVOTHYROXINE 75 MCG TABLET PO SCH (04:45)
[2019-05-08] MEDS: HYDROCODONE/ACETAMINOPHEN 5/325 MG TAB PO PRN (04:45)
[2019-05-08] MEDS: ACETAMINOPHEN 325 MG TAB PO SCH (05:13)
[2019-05-08 06:41] LABS: BASOPHILS % (AUTO) 0.5 % (0.0-5.0); EOSINOPHILS % (AUTO) 3.6 % (0.0-8.0); HEMATOCRIT 32.3 % (36-48); LYMPHOCYTES % (AUTO) 15.4 % (21.0-51.0); MEAN CORPUSCULAR HEMOGLOBIN 30.2 pg (27.0-33.0); MEAN CORPUSCULAR HGB CONC 35.2 g/dL (32.0-36.0); MEAN CORPUSCULAR VOLUME 85.8 fL (79-99); NEUTROPHILS % (AUTO) 70.5 % (40.0-77.0); PLATELET COUNT (AUTO) 250 K/uL (130-400); RED BLOOD CELL COUNT(AUTO) 3.76 MIL/uL (4.00-5.50); RED CELL DISTRIBUTION WIDTH 13.5 % (11.0-15.5); WHITE BLOOD COUNT (AUTO) 8.8 K/uL (4.8-10.8)
[2019-05-08 06:50] LABS: CREATININE 0.5 mg/dL (0.5-1.5); POTASSIUM 3.8 mmol/L (3.5-5.1)
[2019-05-08] MEDS ORDERED: MAGNESIUM 2GM PREMIX 50ML 50 ML IV PRN (07:15)
[2019-05-08 08:00] VITALS: BP 129/63
[2019-05-08] MEDS: ENOXAPARIN SODIUM 40 MG/0.4 ML SYRINGE SQ SCH ×2 (09:00→09:16)
[2019-05-08] MEDS: FAMOTIDINE/PF 20 MG/2 ML VIAL IV SCH (09:13)
[2019-05-08] MEDS: ATENOLOL 50 MG TABLET PO SCH (09:14)
[2019-05-08] MEDS: TRAMADOL HCL 50 MG TABLET PO SCH (09:15)
--- NOTE | 2019-05-08 09:25 | NUR ---
PT REFUSING LOVENOX PT EDUCATED ON RISKS OF REFUSING LOVENOX AND RISKS OF DEVELOPING BLOOD CLOTHS PT WITH TEACH BACK , HOWEVER STILL REFUSES MEDICATION
[2019-05-08 12:00] VITALS: BP 118/61
--- NOTE | 2019-05-08 12:39 | NUR ---
CALLED REPORT, SINCE EMS STUFF IS NOW JUST READY ADOLPH, NURSE STATED HE WAS NOT READY TO RECEIVE REPORT AND WOULD CALL ME BACK
--- NOTE | 2019-05-08 13:03 | NUR ---
REPORT GIVEN TO ADIS MEEHAN FULL SBAR REPORT
--- NOTE | 2019-05-08 13:04 | NUR ---
PT D/C WITH TEACH BACK SUCCESSFULLY IV REMOVED, CATHETER TIP INTACT
[2019-05-08] MEDS ORDERED: BISACODYL 10 MG SUPP.RECT RC PRN (14:15)
--- NOTE | 2019-05-08 14:41 | NUR ---
EMS CALLED AGAIN STATED PT IS ON THE LIST
[2019-05-08] MEDS ORDERED: ROPINIROLE HCL 1 MG TABLET PO SCH (15:15)
[2019-05-08] MEDS ORDERED: PHARMACY COMMUNICATION MISC SCH (15:15)
--- NOTE | 2019-05-08 15:20 | NUR ---
EMS GIVEN FOLDER W PATIENT W MOT AND RX AND MED REC
--- NOTE | 2019-05-08 15:20 | NUR ---
PT TAKEN BY EMS PT IN NO APPARENT ACUTE DISTRESS
== END 2019-05-08 15:32 | DRG 482 ==
LOC: EDH 22:50 → EDHIP 05-04 00:34 → 4AH 05-04 01:45
PROVIDERS: ADMIT Family Medicine; ATTEND Family Medicine
PROC: 0QS604Z Reposition Right Upper Femur with Internal Fixation Device, Open Approach (ICD-10-PCS; principal; 2019-05-05 12:30)
PROC: 3E0T3BZ Introduction of Anesthetic Agent into Peripheral Nerves and Plexi, Percutaneous Approach (ICD-10-PCS; 2019-05-05 12:30)
DX: S72.141A Displaced intertrochanteric fracture of right femur, initial encounter for closed fracture (principal); I10 Essential (primary) hypertension; E03.9 Hypothyroidism, unspecified; E87.6 Hypokalemia; H60.91 Unspecified otitis externa, right ear; H91.93 Unspecified hearing loss, bilateral; W01.0XXA Fall on same level from slipping, tripping and stumbling without subsequent striking against object, initial encounter; G89.29 Other chronic pain; M54.9 Dorsalgia, unspecified; Y92.009 Unspecified place in unspecified non-institutional (private) residence as the place of occurrence of the external cause; Z82.49 Family history of ischemic heart disease and other diseases of the circulatory system; Y93.89 Activity, other specified; Y99.8 Other external cause status; Z88.6 Allergy status to analgesic agent; Z88.0 Allergy status to penicillin; Z88.8 Allergy status to other drugs, medicaments and biological substances
CPT/HCPCS: 36415; 73502; 73503; 80048; 81003; 84132; 85025; 85610; 85730; 93005; 97039; G0378; J0360; J1650; J2001; J2270; J2405; J2704; J2710; J2795; J3010; J3480; J3490; J7030

== ENCOUNTER → 2019-08-26 | Outpatient (CLI) | payer MEDICARE ==
[~2019-08-26] MED LIST changes: -CEFD300C3 PO; -NITR0.4T50 SL
== END | disposition home or self-care (01) ==
LOC: RAH 14:25
PROVIDERS: ATTEND Internal Medicine
DX: M84.48XA Pathological fracture, other site, initial encounter for fracture (principal); M15.9 Polyosteoarthritis, unspecified; M54.10 Radiculopathy, site unspecified
CPT/HCPCS: 72100; 72170; 73030; 73110

== ENCOUNTER → 2019-10-15 | Outpatient (CLI) | payer MEDICARE | END | disposition home or self-care (01) | LOC: RAH 12:13 | PROVIDERS: ATTEND Internal Medicine | DX: M19.032 Primary osteoarthritis, left wrist (principal); M81.0 Age-related osteoporosis without current pathological fracture | CPT/HCPCS: 73110 ==

== ENCOUNTER → 2019-12-13 | Outpatient (CLI) | payer MEDICARE | END | disposition home or self-care (01) | LOC: RAH 13:33 | PROVIDERS: ATTEND Neurological Surgery | DX: S32.010A Wedge compression fracture of first lumbar vertebra, initial encounter for closed fracture (principal); M48.062 Spinal stenosis, lumbar region with neurogenic claudication | CPT/HCPCS: 72148 ==

== ENCOUNTER 2020-01-22 06:07 | Day surgery (SDC) | payer MEDICARE ==
[2020-01-17 09:17] LABS: BASOPHILS % (AUTO) 0.5 % (0.0-5.0); EOSINOPHILS % (AUTO) 2.1 % (0.0-8.0); HEMATOCRIT 44.7 % (36-48); LYMPHOCYTES % (AUTO) 29.4 % (21.0-51.0); MEAN CORPUSCULAR HEMOGLOBIN 29.3 pg (27.0-33.0); MEAN CORPUSCULAR HGB CONC 32.7 g/dL (32.0-36.0); MEAN CORPUSCULAR VOLUME 89.6 fL (79-99); MONOCYTES % (AUTO) 8.8 % (3.0-13.0); NEUTROPHILS % (AUTO) 58.8 % (40.0-77.0); PLATELET COUNT (AUTO) 277 K/uL (130-400); RED BLOOD CELL COUNT(AUTO) 4.99 MIL/uL (4.00-5.50); RED CELL DISTRIBUTION WIDTH 14.6 % (11.0-15.5); WHITE BLOOD COUNT (AUTO) 8.4 K/uL (4.8-10.8)
[2020-01-17 10:01] LABS: CREATININE 0.7 mg/dL (0.5-1.5)
[2020-01-21 12:12] VITALS: BP 198/77
[~2020-01-22] VITALS: Ht 152.4 cm; Wt 80.8 kg
[2020-01-22] VITALS (18 sets, daily range): BP systolic 142–209; BP diastolic 63–100
[~2020-01-22 06:07] MED LIST changes: -ALEN70TA10 PO; +ALEN70TA69 PO; +AMLO-257 PO; -AMLO5TAB9 PO; +DULO30CA52 PO; +HYDR-4060 PO
[2020-01-22] MEDS ORDERED: LACTATED RINGERS 1000ML 1,000 ML IV ONE (06:19)
[2020-01-22] MEDS ORDERED: CLINDAMYCIN 900 MG/D5% WATER 50 ML IV ONE (06:19)
[2020-01-22] MEDS ORDERED: LIDOCAINE HCL 1% 20 ML VIAL ONE ×2 (06:49→08:01)
[2020-01-22] MEDS ORDERED: SODIUM BICARB [NEONATAL] 4.2% 10ML SYG ONE (06:49)
[2020-01-22] MEDS ORDERED: FENTANYL CITRATE PF 50 MCG/1 ML 2ML VIAL ONE ×2 (06:57→08:04)
[2020-01-22] MEDS ORDERED: MIDAZOLAM HCL 1 MG/ML 2ML VIAL ONE (06:57)
[2020-01-22] MEDS ORDERED: PREG100C55 PO (07:11)
--- NOTE | 2020-01-22 07:23 | NUR ---
BRUISING TO DIFFERENT PARTS OF BODY Addendum: 01/22/20 at 0724 by JEANNINE TOLLIVER RN RN Amended: Links added.
[2020-01-22] MEDS ORDERED: IOPAMIDOL 10 ML VIAL ONE (07:54)
[2020-01-22] MEDS ORDERED: HYDRALAZINE HCL 20 MG/ML VIAL ONE (08:31)
--- NOTE | 2020-01-22 09:15 | NUR ---
post received pt back from sx, s/p vertebroplasty l5-s1, bandaidx x2 mid back and lower back dry and intact, no bleeding or hematoma to site. neuro checks wnl. pt awake and alert lieing in bed, instructed to keep bedrest for 3 hrs. plan of care discuss with patient . she verbalized understanding. call light within reach.
--- NOTE | 2020-01-22 12:15 | NUR ---
dc dc instructions given to pt's daughter via phone per there request, instructed on new rx, to f/u with dr. six. loredo x 2 to back dry and intact.
--- NOTE | 2020-01-22 12:20 | NUR ---
dc pt dc home via wc no distress noted. pt denied any pain or discomforts. neuro checks wnl. pt accompanied by daughter
[2020-01-23] MEDS ORDERED: CLINDAMYCIN 900 MG/D5% WATER 50 ML IV SCH (05:00)
[2020-02-03] MEDS ORDERED: KETO10TA2 PO (16:49)
== END 2020-01-22 12:20 | disposition home or self-care (01) ==
LOC: DAH 06:07
PROVIDERS: ATTEND Neurological Surgery
DX: M53.3 Sacrococcygeal disorders, not elsewhere classified (principal); Z11.59 Encounter for screening for other viral diseases; M80.88XA Other osteoporosis with current pathological fracture, vertebra(e), initial encounter for fracture; E66.9 Obesity, unspecified; I10 Essential (primary) hypertension; F17.210 Nicotine dependence, cigarettes, uncomplicated; Z68.34 Body mass index [BMI] 34.0-34.9, adult; Z88.0 Allergy status to penicillin; Z88.8 Allergy status to other drugs, medicaments and biological substances; Z79.899 Other long term (current) drug therapy; Z72.89 Other problems related to lifestyle; Z82.49 Family history of ischemic heart disease and other diseases of the circulatory system
CPT/HCPCS: 22511; G0260; 36415; 72110; 80048; 85025; 93005; J0360; J1030; J2250; J3010; J3490; J7120; U0003

== ENCOUNTER 2020-02-04 06:03 | Day surgery (SDC) | payer MEDICARE ==
[2020-01-31 16:30] VITALS: BP 180/70
[2020-02-04] VITALS (12 sets, daily range): BP systolic 117–194; BP diastolic 46–83
[~2020-02-04] VITALS: Ht 152.4 cm; Wt 78.0 kg
[~2020-02-04 06:03] MED LIST changes: +ALEN70TA10 PO; -ALEN70TA69 PO; -AMLO-257 PO; +KETO10TA2 PO; +PREG100C55 PO; -ROPI4TAB6 PO
[2020-02-04] MEDS ORDERED: CLINDAMYCIN 900 MG/D5% WATER 50 ML IV ONE (06:38)
[2020-02-04] MEDS ORDERED: LACTATED RINGERS 1000ML 1,000 ML IV ONE (06:38)
[2020-02-04] MEDS ORDERED: SODIUM BICARB [NEONATAL] 4.2% 10ML SYG ONE (06:50)
[2020-02-04] MEDS ORDERED: LIDOCAINE HCL 1% 20 ML VIAL ONE (06:50)
[2020-02-04] MEDS ORDERED: MIDAZOLAM HCL 1 MG/ML 2ML VIAL ONE (07:09)
[2020-02-04] MEDS ORDERED: FENTANYL CITRATE PF 50 MCG/1 ML 2ML VIAL ONE (07:09)
[2020-02-04] MEDS ORDERED: BUPIVACAINE/PF 0.25% 30ML VIAL IJ ONE (07:10)
[2020-02-04] MEDS ORDERED: PROPOFOL 10 MG/ML 20ML VIAL IV ONE (07:10)
[2020-02-04] MEDS ORDERED: IOPAMIDOL 10 ML VIAL ONE (07:32)
[2020-02-05] MEDS ORDERED: CLINDAMYCIN 900 MG/D5% WATER 50 ML IV SCH (05:00)
== END 2020-02-04 09:32 | disposition home or self-care (01) ==
LOC: DAH 06:03
PROVIDERS: ATTEND Neurological Surgery
DX: M53.3 Sacrococcygeal disorders, not elsewhere classified (principal); I10 Essential (primary) hypertension; E66.9 Obesity, unspecified; Z88.0 Allergy status to penicillin; Z88.6 Allergy status to analgesic agent; Z79.899 Other long term (current) drug therapy; Z11.59 Encounter for screening for other viral diseases
CPT/HCPCS: 36415; 72200; A4215; A4221; A4222; A4223; A4663; G0260; J1030; J2250; J2704; J3010; J3490 ×3; J7030; J7120; Q9966; U0003

== ENCOUNTER 2022-05-19 21:18 | Emergency (ER) | payer OTHER, MEDICARE ==
[~2022-05-19 21:18] MED LIST changes: -ALEN70TA10 PO; +ALEN70TA80 PO
[2022-05-19 21:44] LABS: BASOPHILS % (AUTO) 0.2 % (0.0-5.0); EOSINOPHILS % (AUTO) 0.2 % (0.0-8.0); HEMATOCRIT 43.5 % (36-48); LYMPHOCYTES % (AUTO) 5.4 % (21.0-51.0); MEAN CORPUSCULAR HEMOGLOBIN 30.4 pg (27.0-33.0); MEAN CORPUSCULAR VOLUME 89.3 fL (79-99); MONOCYTES % (AUTO) 8.3 % (3.0-13.0); NEUTROPHILS % (AUTO) 85.2 % (40.0-77.0); PLATELET COUNT (AUTO) 245 K/uL (130-400); RED BLOOD CELL COUNT(AUTO) 4.87 MIL/uL (4.00-5.50); WHITE BLOOD COUNT (AUTO) 12.2 K/uL (4.8-10.8)
[2022-05-19 21:53] LABS: CREATININE 0.8 mg/dL (0.5-1.5); POTASSIUM 3.7 mmol/L (3.5-5.1)
[2022-05-19 21:57] LABS: ALBUMIN 3.4 g/dL (3.5-5.0); TOTAL PROTEIN, SERUM 7.4 g/dL (6.0-8.3)
[2022-05-19 22:28] LABS: CRP QUANTITATIVE 26.5 mg/L (0.00-9.0); MAGNESIUM 1.9 mg/dL (1.80-2.40)
[2022-05-19 23:18] LABS: APPEARANCE,URINE CLEAR (CLEAR); BILIRUBIN,URINE NEGATIVE (NEGATIVE); COLOR,URINE LIGHT-YELLOW (YELLOW); GLUCOSE, URINE (UA) NEGATIVE (NEGATIVE); KETONES,URINE NEGATIVE (NEGATIVE); LEUKOCYTE ESTERASE ,URINE NEGATIVE Leu/uL (NEGATIVE); NITRATE,URINE NEGATIVE (NEGATIVE); OCCULT BLOOD,URINE NEGATIVE (NEGATIVE); PH,URINE 7.5 (5.0-8.0); PROTEIN,URINE NEGATIVE (NEGATIVE); UROBILINOGEN,URINE 0.2 mg/dL (0.2-1.0)
[2022-05-19] MEDS ORDERED: HYDR28GE TP (23:34)
[2022-05-20 01:20] VITALS: BP 152/72
== END 2022-05-20 01:21 | disposition home or self-care (01) ==
LOC: EDH 21:18
DX: F41.9 Anxiety disorder, unspecified (principal); R21 Rash and other nonspecific skin eruption; I10 Essential (primary) hypertension; Z20.822 Contact with and (suspected) exposure to COVID-19; Z88.8 Allergy status to other drugs, medicaments and biological substances; Z88.1 Allergy status to other antibiotic agents; Z88.0 Allergy status to penicillin; Z88.6 Allergy status to analgesic agent; Z79.899 Other long term (current) drug therapy
CPT/HCPCS: 99285; 71045; 87635; 83735; 84484; 80053; 83880; 85025; 87804 ×2; 86140; 81003; 36415; 93005; C9803

== ENCOUNTER 2025-07-30 23:52 | Emergency (ER) | payer OTHER ==
[~2025-07-30] VITALS: Ht 160 cm; Wt 72.6 kg
[~2025-07-30 23:52] MED LIST changes: -ALEN70TA80 PO; +AMLO2.5T4 PO; +CLOP75TA32 PO; +DICY-20 PO; +DONE23TA14 PO; -KETO10TA2 PO; +LEVO150C5 PO; -LEVO175T9 PO; +NITR0.4T50 SL; -PREG100C55 PO
[2025-07-31 00:30] LABS: APPEARANCE,URINE CLEAR (CLEAR); GLUCOSE, URINE (UA) NEGATIVE (NEGATIVE); LEUKOCYTE ESTERASE ,URINE NEGATIVE Leu/uL (NEGATIVE); NITRATE,URINE NEGATIVE (NEGATIVE); OCCULT BLOOD,URINE NEGATIVE (NEGATIVE)
[2025-07-31 00:34] LABS: ADD UA MICROSCOPIC NO
--- NOTE | 2025-07-31 00:48 | ERN ---
General Chief Complaint: Mechanical Fall Stated Complaint: FALL FROM CHAIR, NO HEAD INJURY, PAIN ALL OVER Time Seen by MD: 23:53 Source: patient History of Present Illness Initial Comments PATIENT IS A 74-YEAR-OLD FEMALE COMING IN COMPLAINING OF A FALL. FOR PATIENT SHE WAS HITTING OUT OF A CHAIR TO HER WALKER AND FELL DOWN. SHE STATES THAT SHE HAS SOME RIGHT SHOULDER DISCOMFORT DECIDED FOR A LONG TIME BUT TODAY IS WORSE. Allergies: Coded Allergies: celecoxib (Unverified Allergy, Intermediate, SWELLING, 05/06/19) gabapentin (Unverified Allergy, Intermediate, SWELLING, 05/06/19) Penicillins (Verified Allergy, Unknown, 05/06/19) aspirin (Verified Allergy, Unknown, 05/06/19) Home Meds Reported Medications Nitroglycerin (Nitroglycerin) 0.4 Mg Tab.subl, 0.4 MG SL AD PRN for CHEST PAIN, TAB.SL 03/14/25 Clopidogrel Bisulfate (Clopidogrel) 75 Mg Tablet, 75 MG PO DAILY, TAB 03/14/25 Donepezil HCl (Donepezil HCl) 23 Mg Tablet, 23 MG PO DAILY, TAB 03/14/25 Dicyclomine HCl (Dicyclomine HCl) 10 Mg Capsule, 10 MG PO TID, CAP 03/14/25 Amlodipine Besylate (Amlodipine Besylate) 2.5 Mg Tablet, 5 MG PO DAILY, TAB 10/30/24 Levothyroxine Sodium (Levothyroxine) 150 Mcg Capsule, 175 MCG PO before brekfast, CAP 10/30/24 Duloxetine HCl (Duloxetine HCl) 30 Mg Capsule.dr, 30 MG PO BID, CAP 01/22/20 Hydrocodone/Acetaminophen (Hydrocodon-Acetaminophen 5-325) 1 Each Tablet, 1 EACH PO AD PRN for PAIN LEVEL 1 TO 5, TAB 01/22/20 Trazodone HCl (Trazodone HCl) 100 Mg Tablet, 100 MG PO HS, TAB 06/25/18 Atenolol (Atenolol) 50 Mg Tablet, 50 MG PO DAILY, TAB 12/02/16 Past Medical History Past Medical History: CHF, Dementia, Hypertension, Hypothyroid Past Surgical History: Unknown Female( History) History: Not Applicable ROS Dictation CONSTITUTIONAL: NO CHILLS, NO FEVER, NO WEAKNESS, NO DIAPHORESIS, NO MALAISE. HEAD/FACE: NO SIGNS OF TRAUMA. EENT: NO EYE PAIN, NO BLURRED VISION, NO TEARING, NO DOUBLE VISION, NO EAR ALFREDO N, NO EAR DISCHARGE, NO NOSE PAIN, NO NASAL CONGESTION, NO THROAT PAIN, NO THROAT SWELLING, NO MOUTH PAIN. RESPIRATORY: NO COUGH, NO ORTHOPNEA, NO SOB, NO STRIDOR, NO WHEEZING. CARDIOVASCULAR: NO CHEST PAIN, NO EDEMA, NO PALPITATIONS, NO SYNCOPE. GASTROINTESTINAL/ABDOMINAL: NO ABDOMINAL PAIN, NO CONSTIPATION, NO DIARRHEA, NO NAUSEA, NO VOMITING. GENITOURINARY: NO ABNORMAL DISCHARGE, NO DYSURIA, NO FREQUENT URINATION, NO HEMATURIA. NO COMPLAINTS OF PAIN IN THE GENITALS. MUSCULOSKELETAL: NO BACK PAIN, NO GOUT, JOINT PAIN, NO JOINT SWELLING, MUSCLE PAIN, NO MUSCLE STIFFNESS, NO NECK PAIN. INTEGUMENTARY: NO CHANGE IN COLOR, NO CHANGE IN HAIR/NAILS, NO DRYNESS, NO LESION, NO LUMPS, NO RASH. NEUROLOGICAL/PSYCH: NO ANXIETY, NOT DEPRESSED, NO EMOTIONAL PROBLEM, NO HEADACHE, NO NUMBNESS, NO PRE-EXISTING DEFICIT, NO HISTORY OF SEIZURES, NO TREMORS, NO WEAKNESS. HEMATOLOGIC/LYMPHATIC: NOT ANEMIC, NO HISTORY OF BLOOD CLOTS, NO APPARENT BLEEDING, NO BRUISING, GLANDS NOT SWOLLEN. ALL SYSTEMS NEGATIVE, EXCEPT NOTED. Physical Exam Physical Exam Dictation VITAL SIGNS: REVIEWED. GENERAL APPEARANCE: ALERT, ORIENTED X3, NO ACUTE DISTRESS, OBESE. HEAD AND FACE: NON-TRAUMATIC. EYES: PERRL, PINK CONJUNCTIVAS, EYELID NO TRAUMA, ANTERIOR CHAMBER CLEAR. EARS: PINNAS INTACT AND NO SIGNS OF TRAUMA OR ERYTHEMA. EAR CANALS CLEAR AND NO DISCHARGE. TMS NO ERYTHEMA. NOSE: NO DISCHARGE, NO BLEEDING. OROPHARYNX: MOUTH NORMAL, TEETH NO CARIES, TONGUE PINK. PHARYNX CLEAR, NO LORE THEMA. TONSILS NO EXUDATES, NO ABSCESSES NOTED. MUCOUS MEMBRANE MOIST. NECK: SUPPLE, NON-TENDER, NO THYROMEGALY, NO MASSES, NO JVD, NO BRUITS. BREAST: DEFERRED. CHEST: NO TENDERNESS, NO CREPITUS, NO PARADOXICAL MOVEMENT, NO RETRACTIONS. LUNGS: CLEAR, WELL-VENTILATED, SYMMETRIC, NO RALES, NO WHEEZING, NO RHONCHI, NO STRIDOR, GOOD BREATH SOUNDS BILATERALLY. HEART: REGULAR RATE, REGULAR RHYTHM, NO MURMUR, NO GALLOPS. VASCULAR: NO PERIPHERAL EDEMA. ABDOMEN: SOFT, POSITIVE BOWEL SOUNDS, NONDISTENDED, NO GUARDING, NONTENDER, NO REBOUND, NO MASSES NO HEPATOMEGALY, NO SPLENOMEGALY, NO BRUCE'S SIGN, NO HERNIAS. RECTAL: DEFERRED. GENITAL: DEFERRED. NEUROLOGICAL: NORMAL SPEECH, GROSS MOTOR FUNCTION INTACT, GROSS SENSORY FUNCTION INTACT. MUSCULOSKELETAL: NECK NONTENDER, FULL RANGE OF MOTION, BACK NONTENDER, FULL RANGE OF MOTION. EXTREMITIES: NONTENDER, FULL RANGE OF MOTION. RIGHT SHOULDER PAIN ON PALPATION SKIN: COLOR PINK, DRY, NO TURGOR, NO RASH, NO LACERATIONS, NO ABRASIONS, NO CONTUSIONS. LYMPHATICS: DEFERRED. Results Laboratory and Microbiology Lab and Micro Result Laboratory Tests Test 07/31/25 00:18 Urine Color Light-Yellow (YELLOW) Urine Appearance CLEAR (CLEAR) Urine pH 5.0 (5.0-8.0) Urine Specific [place] 1.005 (1.001-1.031) Urine Protein NEGATIVE mg/dL (NEGATIVE) Urine Glucose (UA) NEGATIVE mg/dL (NEGATIVE) Urine Ketones NEGATIVE mg/dL (NEGATIVE) Urine Occult Blood NEGATIVE (NEGATIVE) Urine Nitrate NEGATIVE (NEGATIVE) Urine Bilirubin NEGATIVE mg/dL (NEGATIVE) Urine Urobilinogen 0.2 mg/dL (0.2-1.0) Urine Leukocyte Esterase NEGATIVE Mika/uL Labs Reviewed?: Yes EKG/XRAY/US/CT/MRI X-RAY Comment [place] [address] [address] IMAGING REPORT Signed PATIENT: BARRERA GARDNER MR#: [id number] : 1940 SEX: F AGE: 85 LOCATION: [facility] ORDER STATUS: REG ER REPORT#: [id number] SERVICE REASON: FALL ORDERING PHYSICIAN: RAUL MAHARAJ MD PROCEDURE: SHOL 2V RT - SHOULDER COMP 2+VWS RT EXAM: CR right Shoulder, 3 Views. CLINICAL HISTORY: FALL COMPARISON: March 13, 2025 FINDINGS: Right shoulder replacement implants and nail-plate fixation of the lower humerus. Bony irregularities in the proximal and distal humerus are most likely from a prior injury. Diffuse osteopenia in all visualized bones. Although the glenoid portion of the implant is not dislocated but it appears slightly superolaterally rotated with increased superior gap between the implant and glenoid fossa, compared to the prior radiograph, suggesting minimal subluxation. The soft tissues are unremarkable. IMPRESSION: Postoperative changes at the level of the right shoulder joint and distal humerus with bony irregularities from a prior injury. The glenoid portion of the implant appears minimally superolaterally subluxated as compared to the prior radiograph dated March 13, 2025. /[place] DICTATED BY: AMARA MERCHANT Jr., MD DATE: 07/31/25238 ELECTRONICALLY SIGNED BY: AMARA MERCHANT Jr., MD DATE: 07/31/25238 [facility] MDM: DIFFERENTIAL DIAGNOSIS: FALL, SHOULDER STRAIN, RATIONALE: TESTS CONSIDERED AND ORDERED SECONDARY TO SHARED DECISION MAKING INCLUDE: PREVIOUS OUTSIDE RECORDS REVIEWED: OLD ER VISITS. RISK OF COMPLICATION AND/OR MORBIDITY OR MORTALITY OF PATIENT MANAGEMENT: NONE MEDICATIONS-PER MEDICATION RECONCILIATION NEED FOR HOSPITALIZATION: PATIENT DOES NOT MEET CRITERIA FOR HOSPITALIZATION. NEED FOR EMERGENCY MAJOR/MINOR SURGERY: NO PATIENT IS A AN 85-YEAR-OLD FEMALE COMING IN AFTER SHE HAD A FALL. PER EMS PATIENT WAS BEING TRANSFERRED TO CHAIR FELL DOWN STATES THAT NOTHING WAS HURTING INITIALLY WITH A COMPLAINT OF RIGHT SHOULDER PAIN. X-RAY DID NOT DISCLOSE ACUTE FINDINGS. PATIENT WILL BE DISCHARGED IN STABLE CONDITION WITH A DIAGNOSIS OF MECHANICAL FALL WITH SHOULDER STRAIN ED Course Orders Procedure Category Date Status Time Urinalysis Profile LAB 07/31/25 Complete 00:14 Shoulder Comp 2+Vws Rt RAD 07/31/25 Resulted 00:19 Vital Signs Date Time Temp Pulse Resp B/P (MAP) Pulse Ox O2 Delivery O2 Flow Rate FiO2 07/30/25 23:54 98.1 66 16 121/71 97 Room Air 0 DX & DISP Disposition: Discharge Departure Impression: Primary Impression: Right shoulder strain Additional Impression: Accident due to mechanical fall without injury Condition: Stable Additional Instructions: FOLLOW-UP WITH PRIMARY CARE PROVIDER IN 1 TO 2 DAYS. TAKE MEDICATIONS DIRECTED HERE IN THE EMERGENCY ROOM. OKAY TO CONTINUE HOME MEDICATIONS UNLESS OTHERWISE DISCUSSED DURING YOUR VISIT IN THE EMERGENCY ROOM TODAY. RETURN TO YOUR NEAREST EMERGENCY ROOM IF SYMPTOMS WORSEN OR IF THERE IS NO IMPROVEMENT. CALL 911 IF YOU NEED IMMEDIATE ASSISTANCE. TAKE TYLENOL [id number]-[id number]-MNBOBYE NEEDED AND IF NO CONTRAINDICATIONS ARE PRESENT. INCREASE ORAL HYDRATION. A WOUND CULTURE OR URINE CULTURE WAS ORDERED HERE IN THE EMERGENCY ROOM DEPARTMENT PLEASE FOLLOW-UP WITH PRIMARY CARE PROVIDER AND ADVISE THEM TO GET REPORTS FROM OUR FACILITY. IF YOU HAD ANY INGRID WRAP/SPLINTS THAT WERE APPLIED HERE, PLEASE DO NOT REMOVE THEM UNTIL YOU SEE YOUR PRIMARY CARE OR SPECIALTY. REFERRALS: Referrals: SHAWANDA SANTOS MD (PCP) Time of Disposition: 01:48 RAUL MAHARAJ MD Jul 31, 2025 00:48
--- NOTE | 2025-07-31 01:05 | NUR ---
patient taken to bathroom, linen in bed changed
--- NOTE | 2025-07-31 01:30 | NUR ---
blanket given to patient
--- NOTE | 2025-07-31 01:39 | HMCIMG ---
EXAM: CR right Shoulder, 3 Views. CLINICAL HISTORY: FALL COMPARISON: March 13, 2025 FINDINGS: Right shoulder replacement implants and nail-plate fixation of the lower humerus. Bony irregularities in the proximal and distal humerus are most likely from a prior injury. Diffuse osteopenia in all visualized bones. Although the glenoid portion of the implant is not dislocated but it appears slightly superolaterally rotated with increased superior gap between the implant and glenoid fossa, compared to the prior radiograph, suggesting minimal subluxation. The soft tissues are unremarkable. IMPRESSION: Postoperative changes at the level of the right shoulder joint and distal humerus with bony irregularities from a prior injury. The glenoid portion of the implant appears minimally superolaterally subluxated as compared to the prior radiograph dated March 13, 2025. /[place]
[2025-07-31 01:56] VITALS: BP 121/58; PULSE 63; RESP 16; TEMP 98; O2SAT 94
--- NOTE | 2025-07-31 02:25 | NUR ---
pending daughter to arrive for discharge
== END 2025-07-31 03:02 | disposition home or self-care (01) ==
LOC: EDH 23:52
DX: S46.911A Strain of unspecified muscle, fascia and tendon at shoulder and upper arm level, right arm, initial encounter (principal); E03.9 Hypothyroidism, unspecified; I11.0 Hypertensive heart disease with heart failure; I50.9 Heart failure, unspecified; F03.90 Unspecified dementia, unspecified severity, without behavioral disturbance, psychotic disturbance, mood disturbance, and anxiety; Z88.0 Allergy status to penicillin; Z88.8 Allergy status to other drugs, medicaments and biological substances; Z88.6 Allergy status to analgesic agent; Z79.02 Long term (current) use of antithrombotics/antiplatelets; Z79.899 Other long term (current) drug therapy; W07.XXXA Fall from chair, initial encounter; Y93.89 Activity, other specified; Y92.89 Other specified places as the place of occurrence of the external cause; Y99.8 Other external cause status
CPT/HCPCS: 73030; 81003; 99284